=== PATIENT | female | born 1955 | race Two or more races ===

== ENCOUNTER 2019-06-11 19:44 | Emergency (ER) | payer SELFPAY ==
[~2019-06-11] VITALS: Ht 162.6 cm; Wt 77.1 kg
[2019-06-11 19:50] VITALS: BP 207/82
[2019-06-11] MEDS ORDERED: SODIUM BICARBONATE 8.4% INJ 50ML SYRINGE IV ONE (19:51)
[2019-06-11] MEDS ORDERED: EPINEPHrine HCL 1 MG/10 ML SYRG IV ONE (19:51)
[2019-06-11] MEDS ORDERED: CALCIUM CHLOR(10%) 100MG/ML 10ML SYRINGE IV ONE (19:51)
== END 2019-06-11 19:54 | disposition expired ==
LOC: ER 19:50
DX: I46.9 Cardiac arrest, cause unspecified (principal)
CPT/HCPCS: 31500; 92950; 99285; J0171